=== PATIENT | female | born 1930 | race Caucasian/White ===

== ENCOUNTER 2018-11-18 12:01 | Emergency (ER) | payer OTHER ==
[~2018-11-18] VITALS: Ht 162.6 cm; Wt 77.1 kg
[~2018-11-18 12:01] MED LIST: ALLEGRA180 MG; ALLERGY RELIEF180 MG PO; ANTIVERT12.5 MG PO; ANUCORT-HC25 MG RECTAL; ASPIRIN EC81 M1 PO; ASPIRIN325 PO; ATENOLOL 50 MG50 M1 PO; BACTRIM DS TAB1 EAC1 PO; BENAZEPRIL-HCT1 EAC2 PO; BENZAPRIL PO; CALTRATE PLUS1 EACH PO; CALTRATE-600 W1 EACH PO; CARAFATE 1 GM TA1 G1 PO; CARDURA1 MG; CARDURA1 MG PO; CARDURA4 MG PO; FEXOFENADINE H180 MG PO; FLUNISOLIDE25 M1; FOSAMAX 70 MG T70 M1 PO; GAVILAX8.5 GM; KEFLEX500 MG; LEVAQUIN 500 M500 M2 PO; LOSARTIN PO; LOVASTAT40; LOVASTATIN 20 M20 MG; MECLIZINE 25 MG25 M1 PO; MECLIZINE HCL12.5 MG PO; MILK OF MA2400 MG/10 PO; MIRALAX17 GM PO; NORCO 5-325 TA1 EACH PO; ONE-A-DAY WOMENS; PREDNISONE 20 M20 M1 PO; PREDNISONE 20 M20 MG PO; PROAIR HFA8.5 GM; RYTHMOL 150MG150 M1 PO; RYTHMOL150 MG PO; RYTHMOL225 MG PO; SENNA-DOCUSATE1 EACH PO; TRAMADOL 50 MG50 MG PO; UNICOMPLEX M TA1 TA1 PO; ZANTAC 7575 MG PO; ZOFRAN4 MG PO; [UNRECOGNIZED DRUG - CODE] PO
[2018-11-18] MEDS ORDERED: ASPIR 8181 MG PO (12:24)
[2018-11-18 12:51] LABS: ABSOLUTE BASOPHILS 0.1 thou/uL (0.0-0.2); ABSOLUTE EOSINOPHILS 0.1 thou/uL (0.0-0.7); ABSOLUTE LYMPHOCYTES 1.5 thou/uL (0.8-5.3); ABSOLUTE MONOCYTES 0.5 thou/uL (0.0-1.2); ABSOLUTE NEUTROPHILS 3.9 thou/uL (1.6-8.1); BASOPHILS 1.5 %; HEMATOCRIT 42.1 % (37.0-47.0); HEMOGLOBIN 14.3 gm/dL (12.0-15.0); LYMPHOCYTES 24.4 %; MCH 31.4 pg (26.0-34.0); MCHC 34.1 g/dL (28.0-37.0); MCV 92.2 fL (80.0-100.0); MPV 8.2 fl. (7.2-11.1); NUCLEATED RBCS 0 /100WBC; PLATELET COUNT* 176 thou/uL (150-400); POLYS 64.1 %; RBC 4.56 mil/uL (4.20-5.00); RDW-CV 13.8 % (10.5-14.5); WBC 6.1 thou/uL (4.0-11.0)
[2018-11-18 12:56] LABS: PROTIME 10.2 Seconds (9.20-11.50)
[2018-11-18 13:31] LABS: URINE BILIRUBIN NEGATIVE (Negative); URINE BLOOD NEGATIVE (Negative); URINE CLARITY CLEAR; URINE COLOR YELLOW; URINE GLUCOSE-RANDOM NEGATIVE (Negative); URINE KETONES NEGATIVE (Negative); URINE LEUKOCYTES-REFLEX NEGATIVE (Negative); URINE NITRITE-REFLEX NEGATIVE (Negative); URINE PROTEIN NEGATIVE (Negative); URINE UROBILINOGEN 0.2 E.U./dl (0.2-1.0)
[2018-11-18 13:35] LABS: ALBUMIN 3.7 g/dL (3.4-5.0); ALKALINE PHOSPHATASE 88 U/L (46-116); ANION GAP 7 mmol/L (7-16); BUN 23 mg/dL (7-18); CALCIUM 9.8 mg/dL (8.5-10.1); CHLORIDE 99 mmol/L (98-107); CO2 33 mmol/L (21-32); CREATININE 1.2 mg/dL (0.6-1.3); GLUCOSE 117 mg/dL (70-99); POTASSIUM 4.1 mmol/L (3.5-5.1); SGOT 24 U/L (15-37); SGPT 24 U/L (30-65); SODIUM 139 mmol/L (136-145); TOTAL BILIRUBIN 0.5 mg/dL (<0.1-1.0); TOTAL PROTEIN 7.7 g/dL (6.4-8.2); TROPONIN-I LEVEL <0.06 ng/mL (<0.06)
[2018-11-18 16:07] VITALS: BP 185/85
[2018-11-18] MEDS ORDERED: DIFLUCAN150 MG PO (16:25)
== END 2018-11-18 16:27 ==
LOC: M.ERS 12:01
PROVIDERS: Personal Emergency Response Attendant
DX: J32.9 Chronic sinusitis, unspecified (principal); R55 Syncope and collapse; I10 Essential (primary) hypertension; E78.5 Hyperlipidemia, unspecified; M81.0 Age-related osteoporosis without current pathological fracture; Z87.442 Personal history of urinary calculi; Z85.828 Personal history of other malignant neoplasm of skin; Z88.1 Allergy status to other antibiotic agents; Z88.2 Allergy status to sulfonamides; Z88.8 Allergy status to other drugs, medicaments and biological substances

== ENCOUNTER → 2020-06-11 | Outpatient (CLI) | payer OTHER ==
[~2020-06-11] MED LIST changes: +ASPIR 8181 MG PO; +DIFLUCAN150 MG PO
== END ==
LOC: M.CT 10:38
PROVIDERS: ATTEND Registered Nurse
DX: R42 Dizziness and giddiness (principal); R51.9 Headache, unspecified